=== PATIENT | male | born 1985 | race Caucasian/White ===

== ENCOUNTER 2016-11-01 17:45 | Emergency (ER) | payer OTHER ==
[2016-11-01 18:10] VITALS: BP 138/87; PULSE 82; RESP 16; TEMP 98.1; O2SAT 98
--- NOTE | 2016-11-01 18:13 | UCPHY ---
H & P Patient Type: New Chief Complaint Nursing Narrative: Migraine law x 3 days . Loss of vision peripheral bilaterally since Sunday 10 am . Excedrine migraine today , increased fluids. HPI/ROS: CHIEF COMPLAINT: Visual changes HISTORY OF PRESENT ILLNESS: This is a healthy 31-year-old male with a history of migraine headaches who presents with 3 days of headache and visual changes. He experiences a couple of migraines annually and usually treats them successfully with [id number]-[id number] medication. His headaches are usually preceded by visual scotomata. 3 days ago he developed a migraine headache, took his usual iuoh-now-ynkabdw medication (Excedrin migraine), drink lots of fluid, and rested for several hours. His headache has persisted but is not severe. In addition, he has a sense of decreased peripheral vision. He feels as if objects in the periphery are fuzzy. He denies fever, recent head trauma, new weakness, new numbness, confusion, or vomiting. He does have a history of 2 concussions in the past. REVIEW OF SYSTEMS: A ten point review of systems was performed and is negative with the exception of the items mentioned in the HPI. Source: Patient Exam Limitations: No limitations - Medical/Surgical History Other PMH: PCP none. MIgraine. MTBI. Surgeries Tonsilectomy sinus surgery - Family History Significant Family History: No pertinent family hx - Social History Smoking Status: Former smoker Alcohol Use: Rarely Drug Use: None Additional Social History: He lives with his and 2 children. He works in [employer]. - Physical Exam Exam: General Appearance: Alert. Vital signs reviewed. Blood pressure 138/87. Eyes: Pupils equal and round, no conjunctival injection, no discharge. Anicteric. Visual acuity reviewed. ENT, Mouth: Mucous membranes are moist, no oropharyngeal erythema or edema. Neck: No lymphadenopathy, supple. No meningeal signs. Respiratory: Lungs are clear to auscultation; no wheezes, rales, or rhonchi. Cardiovascular: Regular rate and rhythm; no murmur, rub, or gallop. Gastrointestinal: Abdomen is soft and nontender, no masses or organomegaly, bowel sounds normal. Skin: Warm and dry, no rashes on exposed skin, normal color. Back: Nontender to palpation over the thoracolumbar spine. No CVAT. Extremities: No lower extremity edema, no calf tenderness or swelling. Neurological: Alert and oriented. Moving all four extremities easily and equally. Cranial nerves II through XII are examined and are intact. Visual nelson are normal to bedside confrontational testing. Strength is 5 over 5 bilaterally with testing of all major motor groups. Sensation is intact to light touch over all 4 extremities. Deep tendon reflexes are 2+ in the biceps and 1+ in the knees bilaterally. Gait is normal. [id number] is performed accurately. Negative Romberg. Psychiatric: Normal affect. Constitutional: Initial Vital Signs Temperature (C) 36.7 C 11/01/16 18:01 Heart Rate 82 11/01/16 18:01 Respiratory Rate 16 11/01/16 18: Blood Pressure 138/87 H 11/01/16 18: O2 Sat (%) 98 11/01/16 18:01 O2 Delivery Mode Room Air Allergies/Adverse Reactions: No Known Allergies Allergy (Unverified 11/01/16 18:10) Home Medications: Medication Instructions Recorded NK [No Known Home Meds] 11/01/16 Medical Decision Making ED Course/Re-evaluation: Healthy 31-year-old with 3 days of headache. He has history of migraine headache but is never had 1 that has lasted this long, nor has he had persistent visual changes. I think that the symptoms are migrainous. We discussed imaging--CT scan or MRI. At this point he does not want undergo brain imaging. I think that CVA, either hemorrhagic or ischemic, sinus thrombosis, subarachnoid hemorrhage, brain tumor are all quite unlikely. His neurologic exam in his visual acuity testing are normal. We discussed migraine treatments. He does not want to have intravenous fluids or intravenous medications. He would like to try treating his headache and visual symptoms at home and I am recommending ibuprofen, Tylenol, and Benadryl. He is given a prepack of Vicodin to use for persistent headache. We reviewed the danger signs that should prompt him to be re-evaluated should they occur. I have advised him to seek medical attention if his headache or visual symptoms persist or change. Differential Diagnosis: Headache including but not limited to subarachnoid hemorrhage, migraine headache , tension headache and infectious causes such as meningitis, pharyngitis and sinusitis. Departure - Departure Disposition: Home, Routine, Self-Care Clinical Impression: Migraine aura, persistent Qualifiers: Status migrainosus presence: without status migrainosus Intractability: not intractable Qualifier Code: (G43.509) Persistent migraine aura without cerebral infarction, not intractable, without status migrainosus Condition: Good Instructions: Migraine Headache (ED) Additional Instructions: I think that your visual changes are related to migraine headache. I recommend, when you get home tonight, you take ibuprofen (Motrin or Advil, any brand is fine) 800 mg, Tylenol 650 mg, and Benadryl 50 mg. If your headache persists you can use 1 or 2 of the Vicodin that you have been given. I think that when your headache is completely gone your vision will return to normal. However, if you have persistent visual problems, persistent headache, or any new symptoms such as fever, weakness, numbness, vomiting--you should be re- evaluated in emergency department. I am referring you to Dr. Rm for primary care. Referrals: Dmitry Rm DO [Doctor of Osteopathy] - As per Instructions Stand Alone Forms: Work Excuse - PQRS PQRS Measurement: Not applicable.
[2016-11-01] MEDS ORDERED: HYDROCOD/APAP 5/325 PREPACK#6 BTL TAKEHOME ONE (18:39)
== END 2016-11-01 19:23 | disposition home or self-care (01) ==
LOC: CED 17:45
DX: G43.509 Persistent migraine aura without cerebral infarction, not intractable, without status migrainosus (principal); Z87.891 Personal history of nicotine dependence
CPT/HCPCS: 99204-PO; G0463-PO